=== PATIENT | female | born 1990 | race Caucasian/White ===

== ENCOUNTER → 2023-02-11 15:08 | Outpatient (CLI) | payer OTHER, SELFPAY ==
--- NOTE | 2023-02-11 15:11 | DI.US.S_ITS ---
PROCEDURE: US OB <= 14 WEEKS FETUS INDICATIONS: dating and viability OUTSIDE/PRIOR DATING DATA: Last menstrual period (LMP): 12/18/2022 LMP-based estimated date of delivery (ERWIN): 09/24/2023 First dating scan (date and location): 02/11/2023 Estimated date of delivery (ERWIN) from first dating scan: 10/02/2023. TECHNIQUE: Real-time scanning was performed of the fetus and maternal pelvic organs, with image documentation. COMPARISON: None. FINDINGS: Embryo: Single intrauterine gestational sac is seen with fetus and yolk sac seen. crown-rump length measures 0.8 cm. Estimated gestational age is 6 weeks, 5 days. Heart rate: 135 beats per minute. Maternal organs: 3.5 x 2.7 x 3 cm simple cyst is seen in right ovary. Left ovary is within normal limits. IMPRESSION: 1. Single live intrauterine gestation with fetus and yolk sac seen. Estimated gestational age is 6 weeks, 5 days. heart rate is 135 beats per minute. 2. Simple cyst in right ovary as above. Normal appearing left ovary. We strive to produce accurate, complete, and clear reports of imaging services. To assist us in improving patient care, this report was composed using standard report templates and voice recognition software. Therefore, it may contain abnormal punctuation, insertions and/or omissions. Occasional wrong-word or sound-alike substitutions may occur. Though we review the report and make efforts to correct it, we do recommend that the report be read carefully in proper context to recognize any text inaccuracies. Dictated by: Osorio Kline M.D. on 02/11/2023 at 16:53 Approved by: Osorio Kline M.D. on 02/11/2023 at 16:55
== END ==
PROVIDERS: Referring Provider Obstetrics & Gynecology; Visit Provider Obstetrics & Gynecology
DX: O34.81 Maternal care for other abnormalities of pelvic organs, first trimester (principal); N83.291 Other ovarian cyst, right side; Z3A.01 Less than 8 weeks gestation of pregnancy
CPT/HCPCS: 76801

== ENCOUNTER → 2023-03-03 12:17 | Outpatient (CLI) | payer OTHER, SELFPAY | PROVIDERS: Visit Provider Obstetrics & Gynecology | DX: Z34.81 Encounter for supervision of other normal pregnancy, first trimester (principal) | CPT/HCPCS: 87086 ==

== ENCOUNTER → 2023-03-03 12:26 | Outpatient (CLI) | payer OTHER, SELFPAY ==
[2023-03-03 13:24] LABS: Add Manual Diff / Slide Review NO; Basophils Absolute Auto 0 /uL (0-100); Basophils Percent Auto 0.3 % (0-2); Eosinophils Absolute Auto 100 /uL (0-450); Eosinophils Percent Auto 1.2 % (2-4); Hematocrit 34.5 % (36-46); Hemoglobin 12.4 g/dL (12.0-16.0); Lymphocytes Absolute Auto 1600 /uL (1100-4500); Lymphocytes Percent Auto 17.1 % (25-40); Mean Corpuscular HGB Conc 35.8 % (30-36); Mean Corpuscular Hemoglobin 32.6 PG (26-34); Mean Corpuscular Volume 90.9 fL (80-100); Monocytes Absolute Auto 500 /uL (0-900); Monocytes Percent Auto 5.7 % (3-14); Neutrophils Absolute Auto 7000 /uL (1500-7000); Neutrophils Percent Auto 75.7 % (50-75); Platelet Count 305 X10^3/uL (150-400); Red Blood Cell Count 3.79 X10^6/uL (4.0-5.2); Red Cell Distribution Width 12.6 % (11.6-14.8); White Blood Cell Count 9.2 X10^3/uL (4.5-11.0)
[2023-03-03 13:30] LABS: Specimen Label NATERA
[2023-03-04 11:36] LABS: Varicella IgG Antibody 618 index (Immune >165)
[2023-03-04 15:48] LABS: Hepatitis B Surface Antigen NEGATIVE s/c (NEGATIVE); Rubella Antibody IgG 9.2 IU/mL (>15)
[2023-03-04 16:08] LABS: HIV 1 & 2 Ab/Ag 4th Gen Combo NEGATIVE (NEGATIVE); Hep C Virus Ab w/Reflex Quant NEGATIVE s/c (NEGATIVE)
[2023-03-06 05:29] LABS: RPR Screen Non Reactive (Non Reactive)
== END ==
PROVIDERS: Referring Provider Obstetrics & Gynecology; Visit Provider Obstetrics & Gynecology
DX: Z34.81 Encounter for supervision of other normal pregnancy, first trimester (principal)
CPT/HCPCS: 36415; 80055; 86787; 86803; 86850; 86900; 86901; 87086; 87389

== ENCOUNTER → 2023-04-28 10:51 | Outpatient (CLI) | payer OTHER, SELFPAY ==
[2023-04-28 13:38] LABS: Free T4, Direct Thyroxine 1.08 ng/dL (0.78-2.19)
[2023-04-28 13:52] LABS: Thyroid Stimulating Hormone 1.96 uIU/mL (0.47-4.68)
[2023-04-30 22:58] LABS: AFP Value 32.1 ng/mL (.); Gest Age on Col Date 18.7 weeks (.); Insulin Dep Diabetes No (.); OSBR Risk 1IN 10000 (.); Results Report (.); Test Results *Screen Negative* (.)
== END ==
PROVIDERS: Referring Provider Obstetrics & Gynecology; Visit Provider Obstetrics & Gynecology
DX: E03.9 Hypothyroidism, unspecified (principal); Z34.81 Encounter for supervision of other normal pregnancy, first trimester; Z34.82 Encounter for supervision of other normal pregnancy, second trimester; Z3A.18 18 weeks gestation of pregnancy
CPT/HCPCS: 36415; 82105; 84439; 84443

== ENCOUNTER → 2023-05-11 14:19 | Outpatient (CLI) | payer OTHER, SELFPAY ==
--- NOTE | 2023-05-11 14:20 | DI.US.S_ITS ---
PROCEDURE: US OB >= 14 WEEKS FETUS INDICATIONS: 20 wk anatomy OUTSIDE/PRIOR DATING DATA: Last menstrual period (LMP): 12/18/2022. LMP-based estimated date of delivery (ERWIN): 09/24/2023 First dating scan (date and location): 02/11/2023 Estimated date of delivery (ERWIN) from first dating scan: 10/02/2023 The calculations are made using the study generated ERWIN of 10/02/2023. TECHNIQUE: Real-time scanning was performed of the fetus, with image documentation and biometric measurements. Endovaginal scanning: Not indicated COMPARISON: [facility], , OB <= 14 WEEKS FETUS, 03/03/2023, 12:05. FINDINGS: General: A single living intrauterine gestation is present. Presentation: Vertex Placenta: Placental position is anterior, without previa. Amniotic fluid index: 11.8 cm, normal range is 5-24 cm. Single deepest vertical pocket is 3.6 cm. heart rate: 135 beats per minute. Maternal cervical canal: 4 cm long. Normal lower limit is 2.5 cm. biometrics: Biparietal diameter: 4.6 cm, 20 weeks, 0 day. Head circumference: 17.2 cm, 19 weeks, 5 days. Abdominal circumference: 14.6 cm, 19 weeks, 6 days. Femur length: 3.2 cm, 19 weeks, 6 days. Clinically estimated gestational age: 19 weeks, 3 days. Composite gestational age from present scan: 19 weeks, 6 days. Estimated weight and percentile: 317 g, 74%. Anatomic survey: Neuro: Ventricles are non-dilated at less than 10 mm. Cisterna magna is normal at 3-11 mm. Cerebellum is normal in size and morphology. Nuchal skin fold: Normal at less than 6 mm between 14-21 weeks gestational age. Face: Nose and lips, facial profile are normal. Spine: No evidence for spina bifida. Heart: 4-chambered heart is present, with normal ventricular outflow tracts. Diaphragm: Diaphragm is intact. Stomach: Left-sided stomach is present. Kidneys: No hydronephrosis. Normal is less than 5 mm in 2nd trimester, less than 7 mm in 3rd trimester. Cord: 3-vessel cord has orthotopic insertion. Bladder: Normal in size. Extremities: All 4 extremities identified. IMPRESSION: 1. Single live intrauterine gestation with fetus in vertex presentation. heart rate is 135 beats per minute. Normal amount of amniotic fluid. Normal growth. Estimated weight is at 74th percentile. 2. Normal anatomic survey. We strive to produce accurate, complete, and clear reports of imaging services. To assist us in improving patient care, this report was composed using standard report templates and voice recognition software. Therefore, it may contain abnormal punctuation, insertions and/or omissions. Occasional wrong-word or sound-alike substitutions may occur. Though we review the report and make efforts to correct it, we do recommend that the report be read carefully in proper context to recognize any text inaccuracies. Dictated by: Osorio Kline M.D. on 05/11/2023 at 17:03 Approved by: Osorio Kline M.D. on 05/11/2023 at 17:05
== END ==
PROVIDERS: Referring Provider Obstetrics & Gynecology; Visit Provider Obstetrics & Gynecology
DX: Z34.82 Encounter for supervision of other normal pregnancy, second trimester (principal); Z3A.19 19 weeks gestation of pregnancy
CPT/HCPCS: 76811

== ENCOUNTER → 2023-06-25 12:18 | Outpatient (CLI) | payer OTHER, SELFPAY ==
[2023-06-25 14:28] LABS: Hematocrit 33.7 % (36-46); Hemoglobin 11.9 g/dL (12.0-16.0)
[2023-06-25 14:53] LABS: GTT (PREG) 1 Hour PP 50gm Dose 103 mg/dL (76-139)
== END ==
PROVIDERS: Specialist; Referring Provider Obstetrics & Gynecology; Visit Provider Obstetrics & Gynecology
DX: Z34.82 Encounter for supervision of other normal pregnancy, second trimester (principal); Z3A.26 26 weeks gestation of pregnancy
CPT/HCPCS: 36415; 82950; 85014; 85018

== ENCOUNTER → 2023-07-19 14:31 | Outpatient (CLI) | payer OTHER, SELFPAY ==
[2023-07-19 15:47] LABS: Free T4, Direct Thyroxine 1.03 ng/dL (0.78-2.19)
[2023-07-19 16:01] LABS: Thyroid Stimulating Hormone 1.65 uIU/mL (0.47-4.68)
== END ==
PROVIDERS: Referring Provider Specialist; Visit Provider Specialist
DX: O99.280 Endocrine, nutritional and metabolic diseases complicating pregnancy, unspecified trimester (principal); E03.9 Hypothyroidism, unspecified
CPT/HCPCS: 36415; 84439; 84443

== ENCOUNTER → 2023-09-02 10:38 | Outpatient (CLI) | payer OTHER, SELFPAY ==
[2023-09-03 13:45] LABS: Strep Grp B PCR NEG for Grp B Strep
== END ==
PROVIDERS: Visit Provider Obstetrics & Gynecology
DX: Z34.83 Encounter for supervision of other normal pregnancy, third trimester (principal); Z3A.36 36 weeks gestation of pregnancy
CPT/HCPCS: 87653

== ENCOUNTER 2023-09-27 05:48 | Inpatient (IN) | payer OTHER, SELFPAY ==
[2023-09-27 06:30] LABS: Add Manual Diff / Slide Review NO; Basophils Absolute Auto 100 /uL (0-100); Basophils Percent Auto 0.6 % (0-2); Eosinophils Absolute Auto 0 /uL (0-450); Eosinophils Percent Auto 0.1 % (2-4); Hematocrit 39.8 % (36-46); Hemoglobin 13.8 g/dL (12.0-16.0); Lymphocytes Absolute Auto 1300 /uL (1100-4500); Lymphocytes Percent Auto 9.9 % (25-40); Mean Corpuscular HGB Conc 34.7 % (30-36); Mean Corpuscular Hemoglobin 31.6 PG (26-34); Mean Corpuscular Volume 91.1 fL (80-100); Monocytes Absolute Auto 300 /uL (0-900); Monocytes Percent Auto 2.2 % (3-14); Neutrophils Absolute Auto 11800 /uL (1500-7000); Neutrophils Percent Auto 87.2 % (50-75); Platelet Count 280 X10^3/uL (150-400); Red Blood Cell Count 4.37 X10^6/uL (4.0-5.2); Red Cell Distribution Width 13.4 % (11.6-14.8); White Blood Cell Count 13.5 X10^3/uL (4.5-11.0)
--- NOTE | 2023-09-27 06:35 | P.HPOB_ITS ---
OB HPI Date/Time Date of admission: 09/27/23 Date Patient Seen: 09/27/23 Time Patient Seen: 06:35 History of Present Condition Chief complaint: Labor & Delivery ERWIN Calculator 2 Estimated Delivery Date Method Current WG Current Estimate 09/24/23 LMP (Certain) 40w 6d Other Estimates 10/02/23 Ultrasound #1 39w 5d 09/28/23 Ultrasound #2 40w 2d Estimated Gestational Age (weeks): 40+3 : 3 Para: 1 care: good care, initiated at week # (10), number of visits (11) and pounds weight gain (25) Dating criteria OB: LMP confirmed by 2nd trimester US Ultrasounds: normal 1st trimester US and normal mid trimester US Obstetrical complications: none Medical complications OB: other (hypothyroid) Preadmission Labs Last OB Lab Results: 2 Blood Type B Positive 09/27/23 06:20 Antibody Screen Negative 09/27/23 06:20 Hematocrit 33.8 % (36-46) L 09/28/23 06:36 Hemoglobin 12.0 g/dL (12.0-16.0) 09/28/23 06:36 Hepatitis B Surface Antigen Negative s/c (NEGATIVE) 03/03/23 12 :55 Hepatitis C Antibody Negative s/c (NEGATIVE) 03/03/23 12:55 Rubella Antibody 9.2 IU/mL (>15) L 03/03/23 12:55 Varicella-Zoster IgG Antibody 618 index (Immune >165) 03/03/23 12:55 Glucose 1 Hour 103 mg/dL (76-139) 06/25/23 13:35 Group B Streptococcus (PCR) Neg for grp b strep 09/02/23 10:38 -: Chlamydia screen: negative, Gonorrhea screen: negative and Urine: negative -: PAP smear: Normal Genetic Screens: Cell-free DNA: Normal (normal female) and Alpha-fetoprotein: Normal External Labs -: Urine: negative Prior (ies) Past Pregnancies Del. Date GA/Weeks Labor Lgth Wt Sex Route Outcome Anesthesia Place Delv Breastfeed Preg Comp Name 10/01/20 9 spontaneous 12/06/21 40.2 48 6 lb 14 oz Female vaginal live - full term [place] still going @14 months none Agustina Delivery Date: 10/01/20 Last Updated by: Ingris Earnest, RN missed AB, needed D&C Evaluation Evaluation Baseline heart rate: 135 Variability: Moderate (11-25) monitor accelerations: Present Monitor Decelerations: Absent Contraction Frequency (minutes): 3 Uterine Contraction Intensity: Strong/Firm Status: Category l Dilation (cm): 9 Effacement (%): 100 station: +1 Position of cervix: anterior Consistency: soft PFSH Medical History (Updated 08/27/23 @ 12:04 by Qi Chopra MD) Hypothyroidism (~2019) Missed Surgical History (Updated 02/23/23 @ 21:30 by Inessa Hodge) Anesthesia [place] teeth extracted (~2005) H/O dilation and curettage (~10/2020) Family History (Updated 02/23/23 @ 21:32 by Inessa Hodge) Grandfather Lung cancer Smoker Grandmother Hypertension Hyperlipidemia Breast cancer Smoker Grandfather Alzheimer disease Smoker Grandmother Glioblastoma Social History marital status: number of children: 1 household members: spouse and children lives independently: Yes caregiver/support person: Yes housing: house pets and animals: Yes (cat; managing litter box) education level: master's degree 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) current occupational exposures/hazards: No special zeina needs: No travel history: recent ([place]) seatbelt use: always helmet use: Yes water heater temp set < 120 deg: Yes working smoke detector in home: Yes fire extinguisher in home: Yes carbon monox detector in home: Yes firearms in home: No do you feel safe at home: Yes Smoking Status: Never smoker second hand exposure: No alcohol intake: former (1-3/week when not ) substance use type: does not use during the past year weight has: remained stable well-balanced diet: daily or most days daily servings fruits/ve or more times/day caffeine: Yes (AM cup coffee) Type(s) of exercise: walking, other (hiking, isometric exercies) and yoga Meds Home Medications and Allergies Home Medications Medication Instructions Recorded Confirmed Type prenat.vits,uri,gbw-wpkd-awlyq 1 tab PO DAILY 02/12/23 09/27/23 History vitamin B complex (B 1 tab PO DAILY 02/12/23 09/27/23 History Complex-Vitamin B12 tablet) ferrous sulfate 142 mg (45 mg 142 mg PO DAILY 03/04/23 09/27/23 History iron) tablet,extended release (Slow Fe) levothyroxine 50 mcg tablet See Rx Instructions .Route DAILY 09/30/23 Rx #90 tabs Allergies Allergy/AdvReac Type Severity Reaction Status Date / Time amoxicillin AdvReac Mild Vomiting Verified 09/16/23 12:01 OB Exam Narrative Exam Narrative: Generally: Patient uncomfortable with the contractions Fundal height: 39 cm Estimated weight: 8 lb Extremities: No edema Objective Labs 09/28/23 06:36 Labs: Laboratory Results - last 24 hr 09/27/23 06:20 WBC 13.5 H RBC 4.37 Hgb 13.8 Hct 39.8 MCV 91.1 MCH 31.6 MCHC 34.7 RDW 13.4 Plt Count 280 Neut % (Auto) 87.2 H Lymph % (Auto) 9.[address] [place] [place] % (Auto) 2.2 L Eos % (Auto) 0.1 L Baso % (Auto) 0.6 Neut # (Auto) 16045 H Lymph # (Auto) 1300 [place] # (Auto) 300 Eos # (Auto) 0 Baso # (Auto) 100 Assessment and Plan Assessment and Plan Assessment and Plan narrative: Assessment: 32-year-old 3 para 1 at 40-,3/7 weeks gestation in active labor Plan: Expected management to spontaneous vaginal delivery Time Spent with Patient Total time spent with greater than 50% in coordination of care (as documented) at patient's floor/unit and/or counseling patient:: 15-24 minutes
[2023-09-27 06:42] VITALS: BP 110/71
[2023-09-27] MEDS: OXYTOCIN 10 UNIT/ML VIAL IM (08:32)
[2023-09-27] MEDS: LIDOCAINE 1% 20 ML INJ (08:38)
[2023-09-27] MEDS: ACETAMINOPHEN 325 MG TABLET 650 MG PO ×2 (10:09→18:37)
[2023-09-27] MEDS: IBUPROFEN 600 MG TABLET PO ×3 (10:09→21:59)
[2023-09-27] MEDS: DERMOPLAST SPRAY 20% 60 ML 1 SPRAY TOP (10:11)
[2023-09-27] MEDS: LEVOTHYROXINE 50 MCG TABLET PO (10:35)
[2023-09-27] MEDS: LANOLIN OINT 7 GM 1 APPLIC TOP (16:00)
[2023-09-27 18:37] VITALS: TEMP 37.2
[2023-09-28] MEDS: ACETAMINOPHEN 325 MG TABLET 650 MG PO ×3 (00:27→13:14)
[2023-09-28] MEDS: IBUPROFEN 600 MG TABLET PO ×2 (04:17→10:48)
[2023-09-28] MEDS: LEVOTHYROXINE 50 MCG TABLET PO (06:03)
[2023-09-28 06:44] LABS: Hematocrit 33.8 % (36-46)
[2023-09-28] MEDS: DOCUSATE 100 MG CAPSULE PO (09:01)
[2023-09-28] MEDS: PRENATAL VIT,CALC/IRON/FOLIC 1 TABLET 1 TAB PO (09:01)
[2023-09-28 10:14] VITALS: BP 102/62; PULSE 72; RESP 16; TEMP 37.2
[2023-09-28] MEDS: MEASLES,MUMPS,RUBELLA VACC/PF 0.5 ML VIAL SUBCUT (10:49)
--- NOTE | 2023-09-30 14:03 | PM.OBPRVD ---
Events: Labor Augmentation Labor & Delivery Delivery date: 09/27/23 Intrapartal Events: Intolerance Cervical ripening method: none Induction method: none Delivery augmentation: rupture of membranes Delivery monitor: external FHT and external uterine Route of delivery: vacuum extraction Indication for instrumentation: nonreassuring FHR tracing Episiotomy description: None L&D Laceration Description: Perineal - 2nd Degree and Vaginal - 2nd Degree Delivery repair: vicryl and chromic Quantitative Blood Loss: 100 Anesthesia Type: Local (for repair only) Complications: none Narrative: Patient complete and pushed for 1 hour and 40 minutes. A vacuum was applied due to deep variable decelerations with pushing, down to the 50s to 60s. With 3 contractions and 3 pulls the vertex delivered over an intact perineum at 8:23 a.m.. The head turned from 0P to GRECIA on the perineum. The vacuum was removed. There were no pop offs. The remainder of the body delivered without difficulty and was placed on mom's abdomen. After the cord stopped pulsing, the cord was double clamped and cut. Cord bloods were obtained. The placenta delivered intact with a three-vessel cord at 8:32 a.m.. Pitocin was given in the IV fluids. The fundus was massaged to firm. A second-degree perineal/vaginal laceration was repaired in the usual fashion. . Apgars 8 at 1 minute and 9 at 5 minutes. weight 8 lb 8 oz. mom and infant stable to recovery. Local with 1% lidocaine for repair only. [place] Baby 1: gender: Female Presentation: vertex Position: Left Occiput Anterior Placenta delivery description: Spontaneous Cord Vessel Description: 3 Vessels and Clamped/Cut (after cord stopped pulsing) score (1 min): 8 score (5 min): 9 weight: 8 lb 8 oz Plan for aftercare: Routine care
== END 2023-09-28 13:30 | disposition home or self-care (01) | DRG 807 ==
PROVIDERS: Admitting Provider Obstetrics & Gynecology; Referring Provider Obstetrics & Gynecology; Visit Provider Obstetrics & Gynecology
DX: O99.284 Endocrine, nutritional and metabolic diseases complicating childbirth (principal); Z37.0 Single live birth; E03.9 Hypothyroidism, unspecified; O76 Abnormality in fetal heart rate and rhythm complicating labor and delivery; Z3A.40 40 weeks gestation of pregnancy; O70.1 Second degree perineal laceration during delivery
CPT/HCPCS: 36415; 59050; 59400; 85014; 85018; 85025; 86850; 86900; 86901; G0379; J2590

== ENCOUNTER → 2023-10-26 14:01 | Outpatient (CLI) | payer OTHER, SELFPAY ==
[2023-10-26 15:37] LABS: Hematocrit 38.3 % (36-46); Hemoglobin 13.2 g/dL (12.0-16.0)
[2023-10-26 16:16] LABS: Free T4, Direct Thyroxine 1.29 ng/dL (0.78-2.19)
[2023-10-26 16:30] LABS: Thyroid Stimulating Hormone 0.986 uIU/mL (0.47-4.68)
== END ==
PROVIDERS: Referring Provider Obstetrics & Gynecology; Visit Provider Obstetrics & Gynecology
DX: O99.280 Endocrine, nutritional and metabolic diseases complicating pregnancy, unspecified trimester (principal); O99.019 Anemia complicating pregnancy, unspecified trimester; E03.9 Hypothyroidism, unspecified
CPT/HCPCS: 36415; 84439; 84443; 85014; 85018

== ENCOUNTER 2023-12-10 10:30 | Outpatient (RCR) | payer OTHER, SELFPAY ==
--- NOTE | 2023-11-26 18:24 | PT.OIE ---
Current Diagnoses Post-term (11/26/23) Past Medical History (Last Updated 02/23/23 @ 21:30 by Inessa Hodge) Hypothyroidism (~2019) Missed Past Surgical History (Last Updated 02/23/23 @ 21:30 by Inessa Hodge) Anesthesia H/O dilation and curettage (~10/2020) [place] teeth extracted (~2005) Visit Care Team Role Provider Type Qi Chopra MD Attending Provider Physician Family Provider Primary Care Provider Referring Provider Specialty: Gynecology DEVELOPMENT ASSISTANT Obstetrics Address: [address] [place] [address], [facility] Email: [email or web address] Physical Therapy Initial Evaluation PT-OP-A Visit Information Start: 11/05/23 18:09 Freq: Status: Active Protocol: Document 11/26/23 10:30 LRN (Rec: 11/26/23 12:43 LRN [id number]) Out-Patient Physical Therapy Visit Information Visit Information Visit Type Initial Evaluation Visit Start Time 10:30 Visit Stop Time 11:29 Visit Number 1 Evaluation Information Evaluation Date 11/26/23 Precautions Precautions Hyperthyroid controlled by med . PT-OP-B Current Condition Start: 11/05/23 18:09 Freq: Status: Active Protocol: Document 11/26/23 10:30 LRN (Rec: 11/26/23 12:43 LRN [id number]) Current Condition History of Current Condition Onset Date 09/27/[address] (2fingers), R LBP, hermila neck /upper shoulder pain. History of Current Condition Pt states she is being referred for DR and post- care although she doesn 't think she really needs it. Pt is ~8 wks post- after of second child. With the first child she reports having had PT before and after in [place] , so she feels she knows what to do, but is agreeable to PT now for goals as listed below. She has been doing previous therapy ex's, modified yoga ex 's (cat/cow, bird dog, sup marching), and Kegels daily. Plans not to do crunches, running, jumping for 6 months as previous therapy recommended. She currently feels weak in the core, has neck, abdominal and R LB pain from carrying her baby around all the time (still ), which she didn 't have to do with the first . She states wearing her daughter all day causes abdominal pain because baby pushes into the lower abdomen. States 11/01/23 she was leaning over to the R to pick something up and had something pop with a little pain in the R LB/SIJ. She notes having a self assessed 2 finger width Diastasis Rectus (DR). Her R LB is painful when lying on a hard surface. Urinary leakage is improving and is only reported present with a strong urge or strong sneeze. She states she can feel a PF contraction and lift , but is harder to hold contraction. She drinks 6 glasses of fluid a day and 1/4 cup of caffeinated beverage. Developmental History Developmental History 2 vaginal pregnancies 12/06/21 & current 09/27/23. Recent required suction and she was told her bladder prolapsed. She had PT before and after her 1st for 1-2 visits (for DR, PF & knee pain) she had PT in [place] at [facility]. Knee pain resolved with gluteal strengthening and currently she denies having knee pain. Treatment Goals Patient/Caregiver Goals Pt goals: Refresh home plan for return to prior level of function, Decrease R LBP when lying on hard surface with ex's. Learn neck/R LB stretches to relieve pain from carring baby in anterior chest carrier. 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 PT-OP-C Subjective Start: 11/05/23 18:09 Freq: Status: Active Protocol: Document 11/26/23 10:30 LRN (Rec: 11/26/23 12:43 LRN [id number]) OP-PT Subjective Patient Comments Patient Comments Denies knee pain. Patient Questionnaires Pelvic Pain and Urgency/Frequency Patient Symptom Scale Pelvic Pain Score 1 OP-PT Pain Assessment Pain Assessment Grid Paper Pain Assessment Grid Completed Yes Location R low back Pain Location Details R PSIS Intensity 1 Scale Used Numeric (0 - 10) Abdomen Pain Location Details Anterior abdominal region Intensity 2 Scale Used Numeric (0 - 10) Hermila Neck Pain Location Details Bilateral sides of neck Intensity 1 Scale Used Numeric (0 - 10) Description Aching PT-OP-H Neuro Start: 11/05/23 18:09 Freq: Status: Active Protocol: Document 11/26/23 10:30 LRN (Rec: 11/26/23 12:43 LRN [id number]) Sensation Evaluation Gross Sensation Gross Sensation WNL PT-OP-I Pelvic Floor Start: 11/05/23 18:09 Freq: Status: Active Protocol: Document 11/26/23 10:30 LRN (Rec: 11/26/23 12:43 LRN [id number]) Pelvic Floor Assessment Urine Pelvic Floor Surgery No Leakage Size Small Other Leakage Causes Strong cough or strong urge Leaks Per Day Only with strong cough or strong urge Voiding Frequency 6/day Nocturia 1 Bowel Other Bowel Symptoms Bowels are her normal, every couple days or few days. [place] Stool Chart Type 1-7 4 Pelvic Clock Pelvic Clock Other Atrophy/weakness of PF ms on L side 12-6 O'Clock. Prolapse Cystocele Grade 2 Perineal Descent Resting Absent Bearing Present Contraction Ability Voluntary Contraction Weak Manual Muscle Testing Left 1 Manual Muscle Testing Right 2 Manual Muscle Testing Anterior 2 Manual Muscle Testing Posterior 2 Muscle Endurance (Seconds) 7 Number of Quick Contractions In 10 4 Seconds Comments Pelvic Floor Comments Minimal external visible movement of PF. Palp of anterior & posterior PF is 2/5 R, 0-1 L Quick PF contractions posteriorly 0/5, Long holds 3/ 5. PT-OP-J Posture/Palpation/Skin Start: 11/05/23 18:09 Freq: Status: Active Protocol: Document 11/26/23 10:30 LRN (Rec: 11/26/23 12:43 LRN [id number]) Posture Evaluation Position Standing Head/C-Spine Posture Forward Head L-Spine Posture Increased Lordosis Pelvis Posture (L) PSIS Posterior Comments Posture Comments L scapula posterior compared to R scapula, L buttock inferior crease elevated. Palpation Assessment Location DR-Abdomen Palpation Location DR-ABdomen Palpation Details Umbilicus 4 above: Closed/ under Xiphoid Process Umbilicus 3 above: 2.5 finger widths Umbilicus 2 above: 2.5 finger widths Umbilicus 1 above: 2.5 finger widths Umbilicus Umbilicus: 1 below: 2.5 finger widths Umbilicus: 2 below: 3.0 finger widths Umbilicus: 3 below: 2.5 finger widths Umbilicus: 4 below: 2.5 finger widths Umbilicus: 5 below: 1 finger width, shallow Umbilicus: 6 below: 1 finger width, very shallow/Pubic Symphysis PT-OP-K Range of Motion Start: 11/05/23 18:09 Freq: Status: Active Protocol: Document 11/26/23 10:30 LRN (Rec: 11/26/23 12:43 LRN [id number]) Lumbar Spine Range of Motion Lumbar Spine Active Degrees Testing Position Standing Flexion 110 Extension 20 Rotation Left 30 Rotation Right 30 Lateral Flexion Left 23 Lateral Flexion Right 20 Comments Trunk AROM: Flexion is 110 deg?s with 60 deg?s hip flexion, Trunk extension is 20 deg?s with 0 deg?s hip extension. Hip Goniometric Range of Motion Hip Left Passive Testing Position Supine Internal Rotation 30 External Rotation 60 Right Passive Testing Position Supine Internal Rotation 30 External Rotation 65 PT-OP-M Strength Start: 11/05/23 18:09 Freq: Status: Active Protocol: Document 11/26/23 10:30 LRN (Rec: 11/26/23 12:43 LRN [id number]) Trunk Strength Trunk Manual Muscle Testing Lateral Flexion Right 2+ Poor+ Core Stabilization Core stability is 4/5. Not able to maintain full core stability with LE MMT. Hip Strength Hip Manual Muscle Testing Right Flexion (L2) 3 Fair Extension (S1) 5 Normal Abduction 5 Normal Adduction 3 Fair External Rotation 4+ Good+ Internal Rotation 5 Normal Comments With Flex: pain felt on inner thigh. Left Flexion (L2) 3 Fair Extension (S1) 5 Normal Abduction 5 Normal Adduction 5 Normal External Rotation 3 Fair Internal Rotation 5 Normal PT-OP-Q Treatments Start: 11/05/23 18:09 Freq: Status: Active Protocol: Document 11/26/23 10:30 LRN (Rec: 11/26/23 12:43 LRN [id number]) Self-Care/Home Management Treatment Education Patient Education Home Exercise Program Other Education Discussed results of evaluation, goals, and plan of care (POC). Pt agreeable to goals and POC. Activities Self-Care/Home Management Activities Issued & reviewed HEP: Samuel ex's and discussed exercise of Quick Flicks, Long Holds and Aggravators. I/S pt in log roll method for transfers to protect DR. PT-OP-T Assessment and Plan Start: 11/05/23 18:09 Freq: Status: Active Protocol: Document 11/26/23 10:30 LRN (Rec: 11/26/23 12:43 ANISH [id number]) Physical Therapy Assessment Rehab Potential Rehabilitation Potential Excellent Evaluation Complexity Number of Personal Factors/Comorbidities 1-2 Number of Body Systems Impaired 4 or More Clinical Presentation at Evaluation Evolving Impairments Impairments Activity Tolerance,Pain, Posture,ROM,Strength,Transfers Goals Four Impairment Diastasis Rectus (DR) with abdominal pain rated 2/10 Impairment Umbilicus 4 above: Closed/ under Xiphoid Process, Umbilicus 3, 2 and 1 above: 2.5 finger widths Umbilicus Umbilicus: 1 below: 2.5 finger widths, Umbilicus: 2 below: 3.0 finger widths, Umbilicus: 3 & 4 below: 2.5 finger widths, Umbilicus: 5 below: 1 finger width, shallow, Umbilicus 6 below: 1 finger width, very shallow/Pubic Symphysis. Short Term Goal (STG) Pt able to prevent abdominal doming with supine head lift. STG Duration 4 wks-12/24/23 Director It Goal (LTG) Reduce DR and eliminate Abdominal pain. LTG Duration 8 wks-01/21/24 Three Impairment R LBP rated 1/10 Short Term Goal (STG) Improve pt awareness of postural changes associated to and pt will be educated in proper sitting/ standing posture and body mechanics for ADLs. STG Duration 2 wks-12/10/23 Director It Goal (LTG) Eliminate R LBP when lying on hard surface with ex's. LTG Duration 6 wks-01/07/24 Two Impairment Neck pain rated 1/10 Short Term Goal (STG) Pt will be educated in neck stretches and pain management techniques to relieve pain from carrying baby in anterior chest carrier. STG Duration 4 wks-12/24/23 Shelter Goal (LTG) Eliminate neck pain with modification of baby carrying times and with neck strengthening exercises. LTG Duration 8 wks-01/21/24 One Impairment Pt lacks appropriate self care HEP. Short Term Goal (STG) Refresh home plan for return to prior level of function, and education in proper methods for transfer (and protecting DR) with coordination of breathing/ Kegel/TA. STG Duration 4 wks-12/24/23 Director It Goal (LTG) Pt will be independent with a self care HEP of PF/core strengthening and hip ROM exercises. 11/26/23: Issued & reviewed HEP: Kegel ex's and discussed exercise of Quick Flicks, Long Holds and Aggravators. LTG Duration 12 wks-02/18/24 progressed 11/26/23 Assessment Summary Assessment Pt is a 33 yo female who presents with diastais rectus (DR) of mostly 2.5 finger width separation, abdominal pain from DR and baby pressing into her abdomen, mixed urinary incontinence present with strong cough or urge, and neck/R LBP due to soft tissue and mechanical dysfunction. She is stiff in upper back with rotation, decreased in hip mobility (ER/IR), weak in core and hips (ER/flex, AD). The pt has mild cystocele and will benefit from education in core pressure management and physical therapy to achieve the above stated goals . Physical Therapy Plan Frequency and Duration Frequency of Treatment 1x/Week Duration of treatment (weeks) 12 Plan of Care Start Date 11/26/23 Plan of Care End Date 02/18/24 Therapeutic Interventions Therapeutic Interventions Gait Training,Home Exercise Program,Joint Mobilizations, Manual Therapy,Neuromuscular Re-education,Self-Care/Home Management,Soft Tissue Mobilization,Taping, Therapeutic Activities, Therapeutic Exercises Modalities Cold Pack/Ice Massage,Electric Stimulation,Hot Packs, Ultrasound Next Visit Focus/Plan Next Note Type Treatment Note Next Visit Plan Next: 2nd Rx: EMG PF assessment/strengthening long holds > Quick contractions. Check for symphysis pubic dysfunction (SPD), Deep breathing ability, DR taping. 3rd Rx: Sacral balancing. Educate: Proper body mechanics coordinating breath/ Kegels/TA (for squatting and lifting, and transfers); postural changes associated to ; and proper sitting /standing posture. Exers: PF/core to close DR/ hip (ER/AD/flex) strengthening , pelvic stabilization for possible SPD., Stretches neck, hip IR/ER. Monitor doming with core activation for progression of ex's Manual: K-tape, Improve abdominal soft tissue (uterus/ bladder/urachus) mobility, urachus/GI fascial mobs, T/S mobs. HEP
--- NOTE | 2023-11-26 18:24 | PT.OPPOC ---
Physical, Occupational & Speech Therapy At [facility] Current Diagnoses Post-term (11/26/23) Visit Care Team Role Provider Type Qi Chopra MD Attending Provider Physician Family Provider Primary Care Provider Referring Provider Specialty: Gynecology VINYL CUTTER Obstetrics Address: [address] [place] [address], [id number] Email: [email or web address] Plan Of Care PT-OP-T Assessment and Plan Start: 11/05/23 18:09 Freq: Status: Active Protocol: Document 11/26/23 10:30 LRN (Rec: 11/26/23 12:43 LRN [id number]) Physical Therapy Assessment Rehab Potential Rehabilitation Potential Excellent Evaluation Complexity Number of Personal Factors/Comorbidities 1-2 Number of Body Systems Impaired 4 or More Clinical Presentation at Evaluation Evolving Impairments Impairments Activity Tolerance,Pain, Posture,ROM,Strength,Transfers Goals Four Impairment Diastasis Rectus (DR) with abdominal pain rated 2/10 Impairment Umbilicus 4 above: Closed/ under Xiphoid Process, Umbilicus 3, 2 and 1 above: 2.5 finger widths Umbilicus Umbilicus: 1 below: 2.5 finger widths, Umbilicus: 2 below: 3.0 finger widths, Umbilicus: 3 & 4 below: 2.5 finger widths, Umbilicus: 5 below: 1 finger width, shallow, Umbilicus 6 below: 1 finger width, very shallow/Pubic Symphysis. Short Term Goal (STG) Pt able to prevent abdominal doming with supine head lift. STG Duration 4 wks-12/24/23 Penitentiary Goal (LTG) Reduce DR and eliminate Abdominal pain. LTG Duration 8 wks-01/21/24 Three Impairment R LBP rated 1/10 Short Term Goal (STG) Improve pt awareness of postural changes associated to and pt will be educated in proper sitting/ standing posture and body mechanics for ADLs. STG Duration 2 wks-12/10/23 Penitentiary Goal (LTG) Eliminate R LBP when lying on hard surface with ex's. LTG Duration 6 wks-01/07/24 Two Impairment Neck pain rated 1/10 Short Term Goal (STG) Pt will be educated in neck stretches and pain management techniques to relieve pain from carrying baby in anterior chest carrier. STG Duration 4 wks-12/24/23 Penitentiary Goal (LTG) Eliminate neck pain with modification of baby carrying times and with neck strengthening exercises. LTG Duration 8 wks-01/21/24 One Impairment Pt lacks appropriate self care HEP. Short Term Goal (STG) Refresh home plan for return to prior level of function, and education in proper methods for transfer (and protecting DR) with coordination of breathing/ Kegel/TA. STG Duration 4 wks-12/24/23 Transplant Nurse Practitioner Goal (LTG) Pt will be independent with a self care HEP of PF/core strengthening and hip ROM exercises. 11/26/23: Issued & reviewed HEP: Kegel ex's and discussed exercise of Quick Flicks, Long Holds and Aggravators. LTG Duration 12 wks-02/18/24 progressed 11/26/23 Assessment Summary Assessment Pt is a 33 yo female who presents with diastais rectus (DR) of mostly 2.5 finger width separation, abdominal pain from DR and baby pressing into her abdomen, mixed urinary incontinence present with strong cough or urge, and neck/R LBP due to soft tissue and mechanical dysfunction. She is stiff in upper back with rotation, decreased in hip mobility (ER/IR), weak in core and hips (ER/flex, AD). The pt has mild cystocele and will benefit from education in core pressure management and physical therapy to achieve the above stated goals . Physical Therapy Plan Frequency and Duration Frequency of Treatment 1x/Week Duration of treatment (weeks) 12 Plan of Care Start Date 11/26/23 Plan of Care End Date 02/18/24 Therapeutic Interventions Therapeutic Interventions Gait Training,Home Exercise Program,Joint Mobilizations, Manual Therapy,Neuromuscular Re-education,Self-Care/Home Management,Soft Tissue Mobilization,Taping, Therapeutic Activities, Therapeutic Exercises Modalities Cold Pack/Ice Massage,Electric Stimulation,Hot Packs, Ultrasound Next Visit Focus/Plan Next Note Type Treatment Note Next Visit Plan Next: 2nd Rx: EMG PF assessment/strengthening long holds > Quick contractions. Check for symphysis pubic dysfunction (SPD), Deep breathing ability, DR taping. 3rd Rx: Sacral balancing. Educate: Proper body mechanics coordinating breath/ Kegels/TA (for squatting and lifting, and transfers); postural changes associated to ; and proper sitting /standing posture. Exers: PF/core to close DR/ hip (ER/AD/flex) strengthening , pelvic stabilization for possible SPD., Stretches neck, hip IR/ER. Monitor doming with core activation for progression of ex's Manual: K-tape, Improve abdominal soft tissue (uterus/ bladder/urachus) mobility, urachus/GI fascial mobs, T/S mobs. HEP Plan of Care Dates Plan of Care Start Date 11/26/23 Plan of Care End Date 02/18/24 Electronically Signed by: Bhumika Campos, PT 11/26/23 9243 If you are in agreement with this Plan of Care, please return a signed and dated copy. I have reviewed this Plan of Care and certify that the skilled therapy services above are required to meet the patient?s needs. Physician Signature Date Printed Name and Credentials Clinical Instructor Signature Printed Name and Credentials
--- NOTE | 2023-11-29 14:54 | PT.OTN ---
Current Diagnoses Post-term (11/29/23) Physical Therapy Treatment Note PT-OP-A Visit Information Start: 11/05/23 18:09 Freq: Status: Active Protocol: Document 11/29/23 13:01 LRN (Rec: 11/29/23 13:48 LRN [id number]) Out-Patient Physical Therapy Visit Information Visit Information Visit Type Treatment Note Visit Start Time 13:01 Visit Stop Time 13:45 Visit Number 2 Evaluation Information Evaluation Date 11/26/23 Precautions Precautions Hyperthyroid controlled by med . PT-OP-B Current Condition Start: 11/05/23 18:09 Freq: Status: Active Protocol: Document 11/26/23 10:30 LRN (Rec: 11/26/23 12:43 LRN [id number]) Current Condition History of Current Condition Onset Date 09/27/[address] (2fingers), R LBP, hermila neck /upper shoulder pain. History of Current Condition Pt states she is being referred for DR and post- care although she doesn 't think she really needs it. Pt is ~8 wks post- after of second child. With the first child she reports having had PT before and after in [place] , so she feels she knows what to do, but is agreeable to PT now for goals as listed below. She has been doing previous therapy ex's, modified yoga ex 's (cat/cow, bird dog, sup marching), and Kegels daily. Plans not to do crunches, running, jumping for 6 months as previous therapy recommended. She currently feels weak in the core, has neck, abdominal and R LB pain from carrying her baby around all the time (still ), which she didn 't have to do with the first . She states wearing her daughter all day causes abdominal pain because baby pushes into the lower abdomen. States 11/01/23 she was leaning over to the R to pick something up and had something pop with a little pain in the R LB/SIJ. She notes having a self assessed 2 finger width Diastasis Rectus (DR). Her R LB is painful when lying on a hard surface. Urinary leakage is improving and is only reported present with a strong urge or strong sneeze. She states she can feel a PF contraction and lift , but is harder to hold contraction. She drinks 6 glasses of fluid a day and 1/4 cup of caffeinated beverage. Developmental History Developmental History 2 vaginal pregnancies 12/06/21 & current 09/27/23. Recent required suction and she was told her bladder prolapsed. She had PT before and after her 1st for 1-2 visits (for DR, PF & knee pain) she had PT in [place] at [facility]. Knee pain resolved with gluteal strengthening and currently she denies having knee pain. Treatment Goals Patient/Caregiver Goals Pt goals: Refresh home plan for return to prior level of function, Decrease R LBP when lying on hard surface with ex's. Learn neck/R LB stretches to relieve pain from carring baby in anterior chest carrier. 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 PT-OP-C Subjective Start: 11/05/23 18:09 Freq: Status: Active Protocol: Document 11/29/23 13:01 LRN (Rec: 11/29/23 13:48 LRN [id number]) OP-PT Subjective Patient Comments Patient Comments Pt chooses to not do a PF assessment with Vemg biofeedback. PT-OP-H Neuro Start: 11/05/23 18:09 Freq: Status: Active Protocol: Document 11/26/23 10:30 LRN (Rec: 11/26/23 12:43 LRN [id number]) Sensation Evaluation Gross Sensation Gross Sensation WNL PT-OP-I Pelvic Floor Start: 11/05/23 18:09 Freq: Status: Active Protocol: Document 11/26/23 10:30 LRN (Rec: 11/26/23 12:43 LRN [id number]) Pelvic Floor Assessment Urine Pelvic Floor Surgery No Leakage Size Small Other Leakage Causes Strong cough or strong urge Leaks Per Day Only with strong cough or strong urge Voiding Frequency 6/day Nocturia 1 Bowel Other Bowel Symptoms Bowels are her normal, every couple days or few days. Wise Stool Chart Type 1-7 4 Pelvic Clock Pelvic Clock Other Atrophy/weakness of PF ms on L side 12-6 O'Clock. Prolapse Cystocele Grade 2 Perineal Descent Resting Absent Bearing Present Contraction Ability Voluntary Contraction Weak Manual Muscle Testing Left 1 Manual Muscle Testing Right 2 Manual Muscle Testing Anterior 2 Manual Muscle Testing Posterior 2 Muscle Endurance (Seconds) 7 Number of Quick Contractions In 10 4 Seconds Comments Pelvic Floor Comments Minimal external visible movement of PF. Palp of anterior & posterior PF is 2/5 R, 0-1 L Quick PF contractions posteriorly 0/5, Long holds 3/ 5. PT-OP-J Posture/Palpation/Skin Start: 11/05/23 18:09 Freq: Status: Active Protocol: Document 11/26/23 10:30 LRN (Rec: 11/26/23 12:43 LRN [id number]) Posture Evaluation Position Standing Head/C-Spine Posture Forward Head L-Spine Posture Increased Lordosis Pelvis Posture (L) PSIS Posterior Comments Posture Comments L scapula posterior compared to R scapula, L buttock inferior crease elevated. Palpation Assessment Location DR-Abdomen Palpation Location DR-ABdomen Palpation Details Umbilicus 4 above: Closed/ under Xiphoid Process Umbilicus 3 above: 2.5 finger widths Umbilicus 2 above: 2.5 finger widths Umbilicus 1 above: 2.5 finger widths Umbilicus Umbilicus: 1 below: 2.5 finger widths Umbilicus: 2 below: 3.0 finger widths Umbilicus: 3 below: 2.5 finger widths Umbilicus: 4 below: 2.5 finger widths Umbilicus: 5 below: 1 finger width, shallow Umbilicus: 6 below: 1 finger width, very shallow/Pubic Symphysis PT-OP-K Range of Motion Start: 11/05/23 18:09 Freq: Status: Active Protocol: Document 11/26/23 10:30 LRN (Rec: 11/26/23 12:43 LRN [id number]) Lumbar Spine Range of Motion Lumbar Spine Active Degrees Testing Position Standing Flexion 110 Extension 20 Rotation Left 30 Rotation Right 30 Lateral Flexion Left 23 Lateral Flexion Right 20 Comments Trunk AROM: Flexion is 110 deg?s with 60 deg?s hip flexion, Trunk extension is 20 deg?s with 0 deg?s hip extension. Hip Goniometric Range of Motion Hip Left Passive Testing Position Supine Internal Rotation 30 External Rotation 60 Right Passive Testing Position Supine Internal Rotation 30 External Rotation 65 PT-OP-M Strength Start: 11/05/23 18:09 Freq: Status: Active Protocol: Document 11/26/23 10:30 LRN (Rec: 11/26/23 12:43 LRN [id number]) Trunk Strength Trunk Manual Muscle Testing Lateral Flexion Right 2+ Poor+ Core Stabilization Core stability is 4/5. Not able to maintain full core stability with LE MMT. Hip Strength Hip Manual Muscle Testing Right Flexion (L2) 3 Fair Extension (S1) 5 Normal Abduction 5 Normal Adduction 3 Fair External Rotation 4+ Good+ Internal Rotation 5 Normal Comments With Flex: pain felt on inner thigh. Left Flexion (L2) 3 Fair Extension (S1) 5 Normal Abduction 5 Normal Adduction 5 Normal External Rotation 3 Fair Internal Rotation 5 Normal PT-OP-Q Treatments Start: 11/05/23 18:09 Freq: Status: Active Protocol: Document 11/29/23 13:01 LRN (Rec: 11/29/23 13:48 LRN [id number]) Therapeutic Exercises Supine Exercises Cough ex Supine Exercise Name Cough-drawing TA in w/exhale Reps/Minutes 4' Comments Cuing to exhale with light cough STAUFFER, STAUFFER ex Supine Exercise Name STAUFFER-drawing TA in w/exhale Reps/Minutes 4' Comments Much cuing to exhale with STAUFFER sound Hands/knees push Supine Exercise Name Hands/knees push Reps/Minutes 3' Sidelying Exercises TA tightening Sidelying Exercise Name TA tightening Side bilateral Reps/Minutes 3 breath hold x 10 each Other Exercises Child's Pose Other Exercise Name Child's pose, R> L Side bilateral Reps/Minutes 3' Comments R Lumbar paraspinal tightness> L 4 pt Other Exercise Name TA tightening Reps/Minutes 3 breath hold x 10 each Self-Care/Home Management Treatment Education Other Education education in proper methods for transfer (and protecting DR) with coordination of breathing/Kegel/TA. PT-OP-T Assessment and Plan Start: 11/05/23 18:09 Freq: Status: Active Protocol: Document 11/29/23 13:01 LRN (Rec: 11/29/23 13:48 LRN [id number]) Physical Therapy Assessment Goals Four Impairment Diastasis Rectus (DR) with abdominal pain rated 2/10 Impairment Umbilicus 4 above: Closed/ under Xiphoid Process, Umbilicus 3, 2 and 1 above: 2.5 finger widths Umbilicus Umbilicus: 1 below: 2.5 finger widths, Umbilicus: 2 below: 3.0 finger widths, Umbilicus: 3 & 4 below: 2.5 finger widths, Umbilicus: 5 below: 1 finger width, shallow, Umbilicus 6 below: 1 finger width, very shallow/Pubic Symphysis. Short Term Goal (STG) Pt able to prevent abdominal doming with supine head lift. 11/29/23: Pt able to perform hands/knees push with minimal doming of abdomen. Notable doming with laughing. STG Duration 4 wks-12/24/23 Machinery Rigger Goal (LTG) Reduce DR and eliminate Abdominal pain. LTG Duration 8 wks-01/21/24 Three Impairment R LBP rated 1/10 Short Term Goal (STG) Improve pt awareness of postural changes associated to and pt will be educated in proper sitting/ standing posture and body mechanics for ADLs. STG Duration 2 wks-12/10/23 Machinery Rigger Goal (LTG) Eliminate R LBP when lying on hard surface with ex's. LTG Duration 6 wks-01/07/24 Two Impairment Neck pain rated 1/10 Short Term Goal (STG) Pt will be educated in neck stretches and pain management techniques to relieve pain from carrying baby in anterior chest carrier. 11/29/23: HEP: Neck SB stretch. STG Duration 4 wks-12/24/23 progressing (need pn mgmt for after carrying baby) Machinery Rigger Goal (LTG) Eliminate neck pain with modification of baby carrying times and with neck strengthening exercises. LTG Duration 8 wks-01/21/24 One Impairment Pt lacks appropriate self care HEP. Short Term Goal (STG) Refresh home plan for return to prior level of function, and education in proper methods for transfer (and protecting DR) with coordination of breathing/ Kegel/TA. 11/29/23: Education in proper methods for transfer (and protecting DR) with coordination of breathing/ Kegel/TA. STG Duration 4 wks-12/24/23 progressing 11/29/23 Longterm Goal (LTG) Pt will be independent with a self care HEP of PF/core strengthening and hip ROM exercises. 11/26/23: Issued & reviewed HEP: Kegel ex's and discussed exercise of Quick Flicks, Long Holds and Aggravators. 11/29/23: HEP neck stretches & TA ex: sidelie,4 pt, sup & hands/knees push. LTG Duration 12 wks-02/18/24 progressed 11/29/23 Assessment Summary Assessment Pt is a 33 yo female who presents with diastais rectus (DR) of mostly 2.5 finger width separation, abdominal pain from DR and baby pressing into her abdomen, mixed urinary incontinence present with strong cough or urge, and neck/R LBP due to soft tissue and mechanical dysfunction. Pt choosing not to do Vemg biofeedback for PF assessment; therefore will cont with Abdominal tightening and PF ex strengthening. Physical Therapy Plan Frequency and Duration Frequency of Treatment 1x/Week Duration of treatment (weeks) 12 Plan of Care Start Date 11/26/23 Plan of Care End Date 02/18/24 Next Visit Focus/Plan Next Note Type Treatment Note Next Visit Plan No Biofeedback per pt request. Next: Check for symphysis pubic dysfunction (SPD), Sacral balancing, taping. Educate: Postural changes associated to ; proper sitting/standing posture, & body mechanics for ADLs (STG #3). Deep breathing check & training as needed, Proper body mechanics coordinating breath/Kegels/TA (for squatting and lifting, and transfers). Exers: PF/core to close DR/ hip (ER/AD/flex) strengthening , pelvic stabilization for possible SPD., Stretches neck, hip IR/ER. Monitor doming with core activation for progression of ex's Manual: K-tape, Improve abdominal soft tissue (uterus/ bladder/urachus) mobility, urachus/GI fascial mobs, T/S mobs. HEP
--- NOTE | 2023-12-10 12:29 | PT.OTN ---
Current Diagnoses Post-term (12/10/23) Physical Therapy Treatment Note PT-OP-A Visit Information Start: 11/05/23 18:09 Freq: Status: Active Protocol: Document 12/10/23 10:37 LRN (Rec: 12/10/23 11:21 LRN [id number]) Out-Patient Physical Therapy Visit Information Visit Information Visit Type Treatment Note Visit Start Time 10:37 Visit Stop Time 11:17 Visit Number 3 Evaluation Information Evaluation Date 11/26/23 Precautions Precautions Hyperthyroid controlled by med . PT-OP-B Current Condition Start: 11/05/23 18:09 Freq: Status: Active Protocol: Document 11/26/23 10:30 LRN (Rec: 11/26/23 12:43 LRN [id number]) Current Condition History of Current Condition Onset Date 09/27/[address] (2fingers), R LBP, hermila neck /upper shoulder pain. History of Current Condition Pt states she is being referred for DR and post- care although she doesn 't think she really needs it. Pt is ~8 wks post- after of second child. With the first child she reports having had PT before and after in [place] , so she feels she knows what to do, but is agreeable to PT now for goals as listed below. She has been doing previous therapy ex's, modified yoga ex 's (cat/cow, bird dog, sup marching), and Kegels daily. Plans not to do crunches, running, jumping for 6 months as previous therapy recommended. She currently feels weak in the core, has neck, abdominal and R LB pain from carrying her baby around all the time (still ), which she didn 't have to do with the first . She states wearing her daughter all day causes abdominal pain because baby pushes into the lower abdomen. States 11/01/23 she was leaning over to the R to pick something up and had something pop with a little pain in the R LB/SIJ. She notes having a self assessed 2 finger width Diastasis Rectus (DR). Her R LB is painful when lying on a hard surface. Urinary leakage is improving and is only reported present with a strong urge or strong sneeze. She states she can feel a PF contraction and lift , but is harder to hold contraction. She drinks 6 glasses of fluid a day and 1/4 cup of caffeinated beverage. Developmental History Developmental History 2 vaginal pregnancies 12/06/21 & current 09/27/23. Recent required suction and she was told her bladder prolapsed. She had PT before and after her 1st for 1-2 visits (for DR, PF & knee pain) she had PT in [place] at [facility]. Knee pain resolved with gluteal strengthening and currently she denies having knee pain. Treatment Goals Patient/Caregiver Goals Pt goals: Refresh home plan for return to prior level of function, Decrease R LBP when lying on hard surface with ex's. Learn neck/R LB stretches to relieve pain from carring baby in anterior chest carrier. 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 PT-OP-C Subjective Start: 11/05/23 18:09 Freq: Status: Active Protocol: Document 12/10/23 10:37 LRN (Rec: 12/10/23 11:21 LRN [id number]) OP-PT Subjective Patient Comments Patient Comments Did a lot of baby carrying and it wore her out. PT-OP-H Neuro Start: 11/05/23 18:09 Freq: Status: Active Protocol: Document 11/26/23 10:30 LRN (Rec: 11/26/23 12:43 LRN [id number]) Sensation Evaluation Gross Sensation Gross Sensation WNL PT-OP-I Pelvic Floor Start: 11/05/23 18:09 Freq: Status: Active Protocol: Document 11/26/23 10:30 LRN (Rec: 11/26/23 12:43 LRN [id number]) Pelvic Floor Assessment Urine Pelvic Floor Surgery No Leakage Size Small Other Leakage Causes Strong cough or strong urge Leaks Per Day Only with strong cough or strong urge Voiding Frequency 6/day Nocturia 1 Bowel Other Bowel Symptoms Bowels are her normal, every couple days or few days. [place] Stool Chart Type 1-7 4 Pelvic Clock Pelvic Clock Other Atrophy/weakness of PF ms on L side 12-6 O'Clock. Prolapse Cystocele Grade 2 Perineal Descent Resting Absent Bearing Present Contraction Ability Voluntary Contraction Weak Manual Muscle Testing Left 1 Manual Muscle Testing Right 2 Manual Muscle Testing Anterior 2 Manual Muscle Testing Posterior 2 Muscle Endurance (Seconds) 7 Number of Quick Contractions In 10 4 Seconds Comments Pelvic Floor Comments Minimal external visible movement of PF. Palp of anterior & posterior PF is 2/5 R, 0-1 L Quick PF contractions posteriorly 0/5, Long holds 3/ 5. PT-OP-J Posture/Palpation/Skin Start: 11/05/23 18:09 Freq: Status: Active Protocol: Document 11/26/23 10:30 LRN (Rec: 11/26/23 12:43 LRN [id number]) Posture Evaluation Position Standing Head/C-Spine Posture Forward Head L-Spine Posture Increased Lordosis Pelvis Posture (L) PSIS Posterior Comments Posture Comments L scapula posterior compared to R scapula, L buttock inferior crease elevated. Palpation Assessment Location DR-Abdomen Palpation Location DR-ABdomen Palpation Details Umbilicus 4 above: Closed/ under Xiphoid Process Umbilicus 3 above: 2.5 finger widths Umbilicus 2 above: 2.5 finger widths Umbilicus 1 above: 2.5 finger widths Umbilicus Umbilicus: 1 below: 2.5 finger widths Umbilicus: 2 below: 3.0 finger widths Umbilicus: 3 below: 2.5 finger widths Umbilicus: 4 below: 2.5 finger widths Umbilicus: 5 below: 1 finger width, shallow Umbilicus: 6 below: 1 finger width, very shallow/Pubic Symphysis PT-OP-K Range of Motion Start: 11/05/23 18:09 Freq: Status: Active Protocol: Document 11/26/23 10:30 LRN (Rec: 11/26/23 12:43 LRN [id number]) Lumbar Spine Range of Motion Lumbar Spine Active Degrees Testing Position Standing Flexion 110 Extension 20 Rotation Left 30 Rotation Right 30 Lateral Flexion Left 23 Lateral Flexion Right 20 Comments Trunk AROM: Flexion is 110 deg?s with 60 deg?s hip flexion, Trunk extension is 20 deg?s with 0 deg?s hip extension. Hip Goniometric Range of Motion Hip Left Passive Testing Position Supine Internal Rotation 30 External Rotation 60 Right Passive Testing Position Supine Internal Rotation 30 External Rotation 65 PT-OP-M Strength Start: 11/05/23 18:09 Freq: Status: Active Protocol: Document 11/26/23 10:30 LRN (Rec: 11/26/23 12:43 LRN [id number]) Trunk Strength Trunk Manual Muscle Testing Lateral Flexion Right 2+ Poor+ Core Stabilization Core stability is 4/5. Not able to maintain full core stability with LE MMT. Hip Strength Hip Manual Muscle Testing Right Flexion (L2) 3 Fair Extension (S1) 5 Normal Abduction 5 Normal Adduction 3 Fair External Rotation 4+ Good+ Internal Rotation 5 Normal Comments With Flex: pain felt on inner thigh. Left Flexion (L2) 3 Fair Extension (S1) 5 Normal Abduction 5 Normal Adduction 5 Normal External Rotation 3 Fair Internal Rotation 5 Normal PT-OP-Q Treatments Start: 11/05/23 18:09 Freq: Status: Active Protocol: Document 12/10/23 10:37 LRN (Rec: 12/10/23 11:21 LRN [id number]) Therapeutic Exercises Supine Exercises Lateral Hip stretch Supine Exercise Name Lateral Hip stretch Side bilateral Reps/Minutes 3' Piriformis stretch Supine Exercise Name Knee to opp shoulder stretch Side bilateral Reps/Minutes 3' DKTC Supine Exercise Name DKTC stretch Reps/Minutes 2' Comments Extra time taken to determine best positioning for max cole stretch Sidelying Exercises TA/clamshell Sidelying Exercise Name TA/clamshell Side bilateral Equipment Used With assist to lift pt able to lift legs ~45R, 40L) Comments Tng to use hand to help lift top leg to max ER before lowering (40R, 30L) TA tightening Sidelying Exercise Name TA tightening Side bilateral Reps/Minutes 3 breath hold x 5 each Other Exercises Cat/Cow Other Exercise Name Cat/Cow stretch Reps/Minutes 3' Wag the Tail Other Exercise Name Lateral trunk stretch-Wag the Tail Side bilateral Reps/Minutes 4' Child's Pose Other Exercise Name Child's pose, R> L Side bilateral Reps/Minutes 3' Comments R Lumbar paraspinal tightness> L 4 pt Other Exercise Name TA tightening Reps/Minutes 3 breath hold x 10 each Manual Therapy Treatment Taping DR Body Location Abdomen Treatment Focus DR closure Type of Tape Kinesio Tape Skin Inspection Good Comments Pt I/S in safe and proper removal and for wear time of 5 days max. Self-Care/Home Management Treatment Education Patient Education Home Exercise Program Activities Self-Care/Home Management Activities Issued & reviewed HEP: Stretches of KTC, Piriformis ( knee to opp shoulder) & lateral hip stretch. PT-OP-T Assessment and Plan Start: 11/05/23 18:09 Freq: Status: Active Protocol: Document 12/10/23 10:37 LRN (Rec: 12/10/23 11:21 LRN [id number]) Physical Therapy Assessment Goals Four Impairment Diastasis Rectus (DR) with abdominal pain rated 2/10 Impairment Umbilicus 4 above: Closed/ under Xiphoid Process, Umbilicus 3, 2 and 1 above: 2.5 finger widths Umbilicus Umbilicus: 1 below: 2.5 finger widths, Umbilicus: 2 below: 3.0 finger widths, Umbilicus: 3 & 4 below: 2.5 finger widths, Umbilicus: 5 below: 1 finger width, shallow, Umbilicus 6 below: 1 finger width, very shallow/Pubic Symphysis. Short Term Goal (STG) Pt able to prevent abdominal doming with supine head lift. 11/29/23: Pt able to perform hands/knees push with minimal doming of abdomen. Notable doming with laughing. STG Duration 4 wks-12/24/23 progressed Cost Recovery Technician Goal (LTG) Reduce DR and eliminate Abdominal pain. 12/10/23: DR KT-taping. LTG Duration 8 wks-01/21/24 progressed Three Impairment R LBP rated 1/10 Short Term Goal (STG) Improve pt awareness of postural changes associated to and pt will be educated in proper sitting/ standing posture and body mechanics for ADLs. STG Duration 2 wks-12/10/23 Cost Recovery Technician Goal (LTG) Eliminate R LBP when lying on hard surface with ex's. LTG Duration 6 wks-01/07/24 Two Impairment Neck pain rated 1/10 Short Term Goal (STG) Pt will be educated in neck stretches and pain management techniques to relieve pain from carrying baby in anterior chest carrier. 11/29/23: HEP: Neck SB stretch. STG Duration 4 wks-12/24/23 progressing (need pn mgmt for after carrying baby) Cost Recovery Technician Goal (LTG) Eliminate neck pain with modification of baby carrying times and with neck strengthening exercises. LTG Duration 8 wks-01/21/24 One Impairment Pt lacks appropriate self care HEP. Short Term Goal (STG) Refresh home plan for return to prior level of function, and education in proper methods for transfer (and protecting DR) with coordination of breathing/ Kegel/TA. 11/29/23: Education in proper methods for transfer (and protecting DR) with coordination of breathing/ Kegel/TA. STG Duration 4 wks-12/24/23 progressing 11/29/23 (check home plan for return to PLOF) Jail Goal (LTG) Pt will be independent with a self care HEP of PF/core strengthening and hip ROM exercises. 11/26/23: Issued & reviewed HEP: Kegel ex's and discussed exercise of Quick Flicks, Long Holds and Aggravators. 11/29/23: HEP neck stretches & TA ex: sidelie,4 pt, sup & hands/knees push. 12/10/23: HEP: Stretches of KTC, Piriformis (knee to opp shoulder) & lateral hip stretch. LTG Duration 12 wks-02/18/24 progressed 12/10/23 Assessment Summary Assessment 33 yo female with diastasis rectus (DR) of mostly 2.5 finger width separation, abdominal pain from DR and baby pressing into her abdomen , mixed urinary incontinence with strong cough or urge, and neck/R LBP due to soft tissue & mechanical dysfunction. Pt still very weak in core but able to do TA in sidelie with clamshell although not able to lift to full ROM possible. Difficult stretching LB due to full breasts. No significant symptoms with palpable symphysis pubis. Physical Therapy Plan Frequency and Duration Frequency of Treatment 1x/Week Duration of treatment (weeks) 12 Plan of Care Start Date 11/26/23 Plan of Care End Date 02/18/24 Next Visit Focus/Plan Next Note Type Treatment Note Next Visit Plan No Biofeedback per pt request. Next: Assess response to DR taping. Sacral balancing in supine on pillows and STM to LB. Discuss methods for carrying baby to minimize neck pain. Educate: Postural changes associated to ; proper sitting/standing posture, & body mechanics for ADLs (STG #3). Deep breathing check & training as needed, Proper body mechanics coordinating breath/Kegels/TA (for squatting and lifting, and transfers). Exers: PF/core to close DR/ hip (ER/AD/flex) strengthening , Stretches neck, hip IR/ER. Monitor doming with core activation for progression of ex's Manual: Improve abdominal soft tissue (uterus/bladder/ urachus) mobility, urachus/GI fascial mobs, T/S mobs. HEP
--- NOTE | 2023-12-19 15:24 | PM.OBDS.1 ---
Discharge Providers Provider Date of admission: 09/27/23 Discharge Date: 09/28/23 Primary care physician: iQ Chopra MD Discharge provider: Qi Chopra MD Summary Hospital Course Date Patient Seen: 09/28/23 Time Patient Seen: 07:45 Diagnoses: 40-3/7 weeks gestation Vacuum assisted vaginal delivery Second-degree perineal/vaginal laceration Hospital Course: Patient is a 32-year-old 3 para 2 who presented on September 27, 2023 in active labor. She was found to be 9 cm. She progressed to complete dilation and had a vacuum assisted vaginal delivery without complication. She had a second-degree vaginal/perineal laceration which was repaired under local analgesia. Her course was unremarkable. She was discharged home on September 28, 2023. Peripartum Data Infant Delivery Method: Assisted Delivery (Vacuum) Laceration Description: Perineal - 2nd Degree and Vaginal - 2nd Degree Episiotomy description: None Procedures: Vacuum assisted vaginal delivery Second-degree vaginal/perineal laceration repair under local complications: none 1: Gender: Female Disposition of : home Status at Discharge Cognitive/behavioral status at discharge: oriented Functional status at discharge: independent ambulation Overall status at discharge: patient is progressing back to baseline Time Spent with Patient Time attestation: Total time spent providing and/or coordinating discharge services: Time spent: Less than 30 minutes Exam Narrative Exam Narrative: Generally: Patient is sitting up in bed, holding infant, no acute distress Fundus: Firm at U -1 Extremities: No edema, negative Homans Discharge Plan Discharge Med Rec/Prescriptions Prescriptions: No Action Slow Fe 142 mg (45 mg iron) tablet extended release 142 mg PO DAILY levothyroxine 50 mcg tablet See Rx Instructions .ROUTE DAILY Qty: 90 3RF Rx Instructions: 50mcg daily five days per week, 100mcg two days per week prenat.vits,uri,[id number] Tablet 1 tab PO DAILY vitamin B complex [B Complex-Vitamin B12] Tablet 1 tab PO DAILY Visit Report/Discharge Packet Referrals: Qi Chopra MD [Primary Care Provider] - Discharge Data Primary Care Provider: Qi Chopra Attending Provider: Qi Chopra
--- NOTE | 2024-01-21 11:42 | PT-OP ANOTE ---
Per phone, message left notifying pt she will be discharged from therapy by end of day today due to her multiple (6 times) canceled appts unless she calls back to discuss reasons for not attending. Informed pt being DC'd per cancel/no show policy by end of day today.
--- NOTE | 2024-01-21 16:58 | PT.OPDS ---
Current Diagnoses Post-term (12/10/23) Visit Care Team Role Provider Type Qi Chopra MD Attending Provider Physician Family Provider Primary Care Provider Referring Provider Specialty: Gynecology [facility]st[facility] Address: [address] [place] [address], [id number] Email: [email or web address] Visit Number Visit Number 3 Discharge Summary PT-OP-B Current Condition Start: 11/05/23 18:09 Freq: Status: Active Protocol: Document 11/26/23 10:30 LRN (Rec: 11/26/23 12:43 LRN [id number]) Current Condition History of Current Condition Onset Date 09/27/[address] (2fingers), R LBP, hermila neck /upper shoulder pain. History of Current Condition Pt states she is being referred for DR and post- care although she doesn 't think she really needs it. Pt is ~8 wks post- after of second child. With the first child she reports having had PT before and after in [place] , so she feels she knows what to do, but is agreeable to PT now for goals as listed below. She has been doing previous therapy ex's, modified yoga ex 's (cat/cow, bird dog, sup marching), and Kegels daily. Plans not to do crunches, running, jumping for 6 months as previous therapy recommended. She currently feels weak in the core, has neck, abdominal and R LB pain from carrying her baby around all the time (still ), which she didn 't have to do with the first . She states wearing her daughter all day causes abdominal pain because baby pushes into the lower abdomen. States 11/01/23 she was leaning over to the R to pick something up and had something pop with a little pain in the R LB/SIJ. She notes having a self assessed 2 finger width Diastasis Rectus (DR). Her R LB is painful when lying on a hard surface. Urinary leakage is improving and is only reported present with a strong urge or strong sneeze. She states she can feel a PF contraction and lift , but is harder to hold contraction. She drinks 6 glasses of fluid a day and 1/4 cup of caffeinated beverage. Developmental History Developmental History 2 vaginal pregnancies 12/06/21 & current 09/27/23. Recent required suction and she was told her bladder prolapsed. She had PT before and after her 1st for 1-2 visits (for DR, PF & knee pain) she had PT in [place] at [facility]. Knee pain resolved with gluteal strengthening and currently she denies having knee pain. Treatment Goals Patient/Caregiver Goals Pt goals: Refresh home plan for return to prior level of function, Decrease R LBP when lying on hard surface with ex's. Learn neck/R LB stretches to relieve pain from carring baby in anterior chest carrier. 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 PT-OP-C Subjective Start: 11/05/23 18:09 Freq: Status: Active Protocol: Document 12/10/23 10:37 LRN (Rec: 12/10/23 11:21 LRN [id number]) OP-PT Subjective Patient Comments Patient Comments Did a lot of baby carrying and it wore her out. PT-OP-H Neuro Start: 11/05/23 18:09 Freq: Status: Active Protocol: Document 11/26/23 10:30 LRN (Rec: 11/26/23 12:43 LRN [id number]) Sensation Evaluation Gross Sensation Gross Sensation WNL PT-OP-I Pelvic Floor Start: 11/05/23 18:09 Freq: Status: Active Protocol: Document 11/26/23 10:30 LRN (Rec: 11/26/23 12:43 LRN [id number]) Pelvic Floor Assessment Urine Pelvic Floor Surgery No Leakage Size Small Other Leakage Causes Strong cough or strong urge Leaks Per Day Only with strong cough or strong urge Voiding Frequency 6/day Nocturia 1 Bowel Other Bowel Symptoms Bowels are her normal, every couple days or few days. Meagher Stool Chart Type 1-7 4 Pelvic Clock Pelvic Clock Other Atrophy/weakness of PF ms on L side 12-6 O'Clock. Prolapse Cystocele Grade 2 Perineal Descent Resting Absent Bearing Present Contraction Ability Voluntary Contraction Weak Manual Muscle Testing Left 1 Manual Muscle Testing Right 2 Manual Muscle Testing Anterior 2 Manual Muscle Testing Posterior 2 Muscle Endurance (Seconds) 7 Number of Quick Contractions In 10 4 Seconds Comments Pelvic Floor Comments Minimal external visible movement of PF. Palp of anterior & posterior PF is 2/5 R, 0-1 L Quick PF contractions posteriorly 0/5, Long holds 3/ 5. PT-OP-J Posture/Palpation/Skin Start: 11/05/23 18:09 Freq: Status: Active Protocol: Document 11/26/23 10:30 LRN (Rec: 11/26/23 12:43 LRN [id number]) Posture Evaluation Position Standing Head/C-Spine Posture Forward Head L-Spine Posture Increased Lordosis Pelvis Posture (L) PSIS Posterior Comments Posture Comments L scapula posterior compared to R scapula, L buttock inferior crease elevated. Palpation Assessment Location DR-Abdomen Palpation Location DR-ABdomen Palpation Details Umbilicus 4 above: Closed/ under Xiphoid Process Umbilicus 3 above: 2.5 finger widths Umbilicus 2 above: 2.5 finger widths Umbilicus 1 above: 2.5 finger widths Umbilicus Umbilicus: 1 below: 2.5 finger widths Umbilicus: 2 below: 3.0 finger widths Umbilicus: 3 below: 2.5 finger widths Umbilicus: 4 below: 2.5 finger widths Umbilicus: 5 below: 1 finger width, shallow Umbilicus: 6 below: 1 finger width, very shallow/Pubic Symphysis PT-OP-K Range of Motion Start: 11/05/23 18:09 Freq: Status: Active Protocol: Document 11/26/23 10:30 LRN (Rec: 11/26/23 12:43 LRN [id number]) Lumbar Spine Range of Motion Lumbar Spine Active Degrees Testing Position Standing Flexion 110 Extension 20 Rotation Left 30 Rotation Right 30 Lateral Flexion Left 23 Lateral Flexion Right 20 Comments Trunk AROM: Flexion is 110 deg?s with 60 deg?s hip flexion, Trunk extension is 20 deg?s with 0 deg?s hip extension. Hip Goniometric Range of Motion Hip Left Passive Testing Position Supine Internal Rotation 30 External Rotation 60 Right Passive Testing Position Supine Internal Rotation 30 External Rotation 65 PT-OP-M Strength Start: 11/05/23 18:09 Freq: Status: Active Protocol: Document 11/26/23 10:30 LRN (Rec: 11/26/23 12:43 LRN [id number]) Trunk Strength Trunk Manual Muscle Testing Lateral Flexion Right 2+ Poor+ Core Stabilization Core stability is 4/5. Not able to maintain full core stability with LE MMT. Hip Strength Hip Manual Muscle Testing Right Flexion (L2) 3 Fair Extension (S1) 5 Normal Abduction 5 Normal Adduction 3 Fair External Rotation 4+ Good+ Internal Rotation 5 Normal Comments With Flex: pain felt on inner thigh. Left Flexion (L2) 3 Fair Extension (S1) 5 Normal Abduction 5 Normal Adduction 5 Normal External Rotation 3 Fair Internal Rotation 5 Normal PT-OP-T Assessment and Plan Start: 11/05/23 18:09 Freq: Status: Active Protocol: Document 01/21/24 16:55 LRN (Rec: 01/21/24 16:58 LRN [id number]) Physical Therapy Assessment Goals Four Impairment Diastasis Rectus (DR) with abdominal pain rated 2/10 Impairment Umbilicus 4 above: Closed/ under Xiphoid Process, Umbilicus 3, 2 and 1 above: 2.5 finger widths Umbilicus Umbilicus: 1 below: 2.5 finger widths, Umbilicus: 2 below: 3.0 finger widths, Umbilicus: 3 & 4 below: 2.5 finger widths, Umbilicus: 5 below: 1 finger width, shallow, Umbilicus 6 below: 1 finger width, very shallow/Pubic Symphysis. Short Term Goal (STG) Pt able to prevent abdominal doming with supine head lift. 11/29/23: Pt able to perform hands/knees push with minimal doming of abdomen. Notable doming with laughing. STG Duration 4 wks-12/24/23 progressed Jail Goal (LTG) Reduce DR and eliminate Abdominal pain. 12/10/23: DR KT-taping. LTG Duration 8 wks-01/21/24 progressed Three Impairment R LBP rated 1/10 Short Term Goal (STG) Improve pt awareness of postural changes associated to and pt will be educated in proper sitting/ standing posture and body mechanics for ADLs. STG Duration 2 wks-12/10/23 Jail Goal (LTG) Eliminate R LBP when lying on hard surface with ex's. LTG Duration 6 wks-01/07/24 Two Impairment Neck pain rated 1/10 Short Term Goal (STG) Pt will be educated in neck stretches and pain management techniques to relieve pain from carrying baby in anterior chest carrier. 11/29/23: HEP: Neck SB stretch. STG Duration 4 wks-12/24/23 progressing (need pn mgmt for after carrying baby) Site Technician Goal (LTG) Eliminate neck pain with modification of baby carrying times and with neck strengthening exercises. LTG Duration 8 wks-01/21/24 One Impairment Pt lacks appropriate self care HEP. Short Term Goal (STG) Refresh home plan for return to prior level of function, and education in proper methods for transfer (and protecting DR) with coordination of breathing/ Kegel/TA. 11/29/23: Education in proper methods for transfer (and protecting DR) with coordination of breathing/ Kegel/TA. STG Duration 4 wks-12/24/23 progressing 11/29/23 (check home plan for return to PLOF) Jail Goal (LTG) Pt will be independent with a self care HEP of PF/core strengthening and hip ROM exercises. 11/26/23: Issued & reviewed HEP: Kegel ex's and discussed exercise of Quick Flicks, Long Holds and Aggravators. 11/29/23: HEP neck stretches & TA ex: sidelie,4 pt, sup & hands/knees push. 12/10/23: HEP: Stretches of KTC, Piriformis (knee to opp shoulder) & lateral hip stretch. LTG Duration 12 wks-02/18/24 progressed 12/10/23 Assessment Summary Assessment Pt was last seen 12/10/23 and has been seen for 2 treatment visits. The pt has canceled 6 of her last scheduled appointment and attempts to discuss her therapy with her have failed; therefore she is being discharged from therapy due to lack of attendance. Goals were not met. Physical Therapy Plan Discharge Physical Therapy Discharge Reasons No Longer Attending PT Discharge Comments See assessment above. Thank you for your referral.
== END 2024-01-26 08:37 | disposition home or self-care (01) ==
LOC: PHYS 10:30
PROVIDERS: Family Provider Obstetrics & Gynecology; PCP Obstetrics & Gynecology; Referring Provider Obstetrics & Gynecology; Visit Provider Obstetrics & Gynecology
DX: O48.0 Post-term pregnancy (principal)
CPT/HCPCS: 97110; 97140; 97162; 97535